=== PATIENT | female | born 1995 | race African-American/Black ===

== ENCOUNTER 2022-08-31 08:19 | Emergency (ER) | payer MEDICAID, OTHER ==
[2022-08-31 08:54] VITALS: BP 122/77
[2022-08-31] MEDS ORDERED: IBUP-1456 PO (09:33)
== END 2022-08-31 09:37 | disposition home or self-care (01) ==
LOC: ER 08:19 → EDBD 08:19 → ER 09:36
DX: S60.222A Contusion of left hand, initial encounter (principal); S80.12XA Contusion of left lower leg, initial encounter; V43.52XA Car driver injured in collision with other type car in traffic accident, initial encounter; Y93.89 Activity, other specified; Y92.488 Other paved roadways as the place of occurrence of the external cause; Y99.8 Other external cause status
CPT/HCPCS: 73130